=== PATIENT | male | born 1965 | race Caucasian/White ===

== ENCOUNTER 2016-10-14 13:00 | Outpatient (CLI) ==
[2016-10-14 12:47] VITALS: BMI 20.3
[2016-10-14 13:35] LABS: BASOPHILS # (AUTO) 0.1 K/uL (0-0.2); EOSINOPHILS # (AUTO) 0.3 K/ul (0.0-0.7); HEMATOCRIT 44.4 % (42.0-52.0); HEMOGLOBIN 15.2 g/dl (14.0-18.0); IMMATURE GRANULOCYTE % (AUTO) 0.4 % (0.0-5.0); LYMPHOCYTES % (AUTO) 36.2 (10.0-50.0); MEAN CORPUSCULAR HEMOGLOBIN 33.1 pg (27.0-31.0); MEAN CORPUSCULAR HGB CONC 34.2 (31.8-35.4); MEAN CORPUSCULAR VOLUME 96.7 fl (80.0-94.0); MONOCYTES # (AUTO) 0.6 K/uL (0.4-2.0); MONOCYTES % (AUTO) 10.5 (0-10); NEUTROPHILS # (AUTO) 2.6 K/ul (2.0-6.9); NEUTROPHILS % (AUTO) 45.9; PLATELET COUNT 372 10^3/uL (140-440); RED BLOOD COUNT 4.59 10^6/ul (4.70-6.10); WHITE BLOOD COUNT 5.55 K/ul (4.2-10.2)
[2016-10-14 14:15] LABS: ALBUMIN 3.8 g/dL (3.4-5.0); ALBUMIN/GLOBULIN RATIO 1.06; ANION GAP 12.8; BILIRUBIN,TOTAL 0.31 mg/dL (0.00-1.20); BUN/CREATININE RATIO 12.85; CALCIUM 9.2 mg/dL (8.2-10.2); CHOL/HDL RATIO 2.5 (4.5-6.4); CREATININE 0.7 mg/dL (0.60-1.10); POTASSIUM 3.8 mmol/L (3.5-5.1); TOTAL PROTEIN 7.4 g/dL (6.4-8.2)
--- NOTE | 2016-10-14 14:44 | DI ---
EXAM: Chest two view, frontal and lateral views. HISTORY: Tobacco use. COMPARISON: None available. FINDINGS: The heart size is normal. There is no pulmonary vascular congestion. The lungs are wallace r. No pleural effusion or pneumothorax is seen. No acute osseous abnormality identified. IMPRESSION: No acute cardiopulmonary process.
== END 2016-10-14 13:01 | disposition home or self-care (01) ==
LOC: LAB 13:00
PROVIDERS: ATTEND Nurse Practitioner Family
DX: R05 Cough (principal); J44.9 Chronic obstructive pulmonary disease, unspecified; R00.2 Palpitations; R03.0 Elevated blood-pressure reading, without diagnosis of hypertension; Z00.00 Encounter for general adult medical examination without abnormal findings; Z72.0 Tobacco use
CPT/HCPCS: 36415; 80053; 80061; 84443; 85025; 93005; 93010

== ENCOUNTER 2016-10-15 23:22 | Outpatient (CLI) ==
[2016-10-14 12:47] VITALS: BMI 20.3
== END 2016-10-15 23:23 ==
LOC: AMBL 23:22
PROVIDERS: ATTEND Family Medicine
DX: I95.9 Hypotension, unspecified (principal); R07.89 Other chest pain; R10.13 Epigastric pain; R11.2 Nausea with vomiting, unspecified; R06.9 Unspecified abnormalities of breathing; R53.1 Weakness; R94.31 Abnormal electrocardiogram [ECG] [EKG]

== ENCOUNTER 2016-10-25 07:42 | Outpatient (CLI) ==
--- NOTE | 2016-10-25 08:45 | CT ---
EXAM: CT Abdomen with contrast. CT Pelvis with contrast. HISTORY: Right lower quadrant pain. Kidney lesion. COMPARISON: None available. TECHNIQUE: Multiple axial images of the abdomen and pelvis were obtained following intravenous admi nistration of 75 mL of Omnipaque 350, low osmolar. Images were reformatted in the coronal plane. FINDINGS: The lung bases are clear. Degenerative changes present in the spine. The liver, gallbladder, pancreas, spleen, adrenal glands are unremarkable. There is symmetric renal enhancement. No solid or cystic renal masses identified. No hydronephrosis or perinephric inflamm ation detected. The bowel is normal in course and caliber without evidence for obstruction or inflammatory process. The appendix is normal. A few diverticula are present in the colon. Urinary bladder is unremarkab le. Prostatic calcifications noted. No free fluid, free air or lymphadenopathy identified. Small fat-containing umbilical hernia noted. Atherosclerotic calcifications are present. IMPRESSION: No evidence for renal lesion or other acute abnormality within the abdomen or pelvis. Correlation w ith any old examinations, if available, would be recommended.
== END 2016-10-25 07:43 | disposition home or self-care (01) ==
LOC: RAD 07:42
PROVIDERS: ATTEND Nurse Practitioner Family
DX: N28.9 Disorder of kidney and ureter, unspecified (principal)

== ENCOUNTER 2016-11-14 07:01 | Outpatient (CLI) ==
--- NOTE | 2016-11-16 10:29 | ECHO2D ---
Date of Exam: 11/14/16 [facility] Reason for Echo: PALPITATIONS, CHEST PAIN M-Mode Normal Adult Results LV Dimensions Normal Adult Results AoV Opening excursions >1.6 >1.6 LVEDD-base- 3.5-5.8 4.4 Ao root dimensions 2.0-3.7 3.6 LVESD-base- 3.1-4.6 L. Atrium dimensions 1.9-3.8 3.9 Post. Wall thickness 0.8-1.1 1.1 IV septum (thickness) 0.7-1.2 1.1 Post. Wall excursion 0.72-1.3 NORMAL Septal motion NORMAL Systolic motion R. Ventricular cavity 1.5-2.0 NORMAL LVEF 60% 55% Paradoxical septal wall motion NORMAL 2-D : 2-D M Mode Echocardiogram was performed using apical four chamber and left parasternal long and short axis views. Mitral, tricuspid and aortic valves appear to be normal. Contractility of the left ventricle seems to be normal, so is the cavity size. Left atrial cavity size and aortic root appear to be normal. There is no pericardial effusion. There is no thrombus noted in the left ventricular or left aortic cavity. No mitral valve prolapse noted. M-MODE: MV: NORMAL AV: NORMAL TV: NORMAL PV: CHAMBER SIZE: NORMAL WALL MOTION: NORMAL PERICARDIUM: NORMAL INTERPRETATION: 1. NORMAL 2 "D" "M" MODE ECHO MTDD
== END 2016-11-14 07:02 | disposition home or self-care (01) ==
LOC: CAR 07:01
PROVIDERS: ATTEND Internal Medicine
DX: R07.9 Chest pain, unspecified (principal); R00.2 Palpitations

== ENCOUNTER 2016-11-15 09:14 | Outpatient (CLI) | END 2016-11-15 09:15 | disposition home or self-care (01) | LOC: CAR 09:14 | PROVIDERS: ATTEND Internal Medicine | DX: R06.02 Shortness of breath (principal); J44.9 Chronic obstructive pulmonary disease, unspecified ==

== ENCOUNTER 2017-04-24 07:11 | Day surgery (SDC) ==
[2017-04-24] MEDS ORDERED: VERSED ONE (08:56)
[2017-04-24] MEDS ORDERED: DIPRIVAN 20 ML VIAL IVP ONE (08:56)
[2017-04-24 09:52] VITALS: BP 105/74; TEMP 98.3
--- NOTE | 2017-04-24 13:55 | OP ---
PROCEDURE: COLONOSCOPY TO THE CECUM WITH SNARE POLYPECTOMY. ENDOSCOPIST: Jarret HILARIO M.D. INDICATION: SCREENING. INSTRUMENT: FH-190. MEDICATION: PER ANESTHESIA. PROCEDURE: The patient was positioned for colonoscopy. The digital rectal exam was negative. The colonoscope was inserted through the anus and advanced to the cecum. The cecum was identified using the ileocecal valve and the appendiceal orifice as landmarks. The scope was slowly withdrawn through an adequately prepped colon. In the ascending colon a 1 cm polyp was removed using snare cautery. At 20 cm, a 5 mm polyp was removed using snare cautery. Retroflex exam was otherwise normal. A few scattered diverticula were noted in the left colon. The patient tolerated the procedure without immediate complication. Withdrawal time 9 minutes. PLAN: 1. Review pathology with repeat colonoscopy in three years. CC: [facility]
== END 2017-04-24 10:06 | disposition home or self-care (01) ==
LOC: SURG 07:11
PROVIDERS: ATTEND Internal Medicine Gastroenterology
DX: Z12.11 Encounter for screening for malignant neoplasm of colon (principal); D12.2 Benign neoplasm of ascending colon; D12.5 Benign neoplasm of sigmoid colon; K57.30 Diverticulosis of large intestine without perforation or abscess without bleeding

== ENCOUNTER 2017-07-24 13:44 | Outpatient (CLI) ==
--- NOTE | 2017-07-24 15:15 | CT ---
EXAM: CT left shoulder HISTORY: Shoulder pain. TECHNIQUE: CT left shoulder without contrast. Multiplanar images provided. FINDINGS: No comparison CT. No acute fracture or dislocation. There is no joint separation or subluxation. The glenohumeral penelope nt proper is grossly within normal limits. There is sclerosis, irregularity and cyst formation along the greater tubercle of the proximal humerus with the cyst measuring about 0.8 cm. This can be cons istent with chronic rotator cuff apparatus insertion pathology. There is moderate acromioclavicular joint osteoarthritis with mild inferior bony spurring. There is no joint effusion identified. The s oft tissues of the shoulder appear grossly normal. IMPRESSION: 1. Changes of the proximal humerus which can be consistent with chronic rotator cuff apparatus inser tion pathology. 2. AC joint osteoarthritis. 3. Consider correlation with MRI if indicated clinically.
== END 2017-07-24 13:45 | disposition home or self-care (01) ==
LOC: RAD 13:44
PROVIDERS: ATTEND Nurse Practitioner Family
DX: M25.512 Pain in left shoulder (principal)

== ENCOUNTER → 2017-11-01 | Outpatient (RCR) ==
--- NOTE | 2017-10-27 09:04 | RS.OPPTEV2 ---
Date of Note: 10/26/17 Visit #: 1 Date of Evaluation: 10/26/17 Payer Source: Medicaid Procedure Performed: Left shoulder manipulation under anesthesia Date of Procedure: 10/24/17 Treatment Diagnosis: Left shoulder stiffness, shoulder pain, adhesive capsulitis left shoulder History of Condition/Mechanism of Injury:: Patient reports progressive left shoulder pain and loss of functional ROM over the last few months. States he had an injury to this shoulder 25 years ago, but did not have a loss of AROM from it. Prior Level of Function.....Patient was independent with: ADL's, Self Care, Caregiving, Ambulation/Mobility, Community Integration/Access Functional Limitations: Sleep, Self Care, ADL's, Reaching, Pushing, Pulling, Lifting, Carrying, Community Access/Integration Current Subjective/complaints:: Patient reports left shoulder pain. Reports he has been using ice and performing exercises as instructed in his post-operative instructions. He is left hand dominant and is having difficulty performing selfcare and ADL's. He cannot lay on the left shoulder. Reports he feels like the left shoulder is a little more loose since the manipulation. States he was told that he may eventually need surgery because he has a Rotator cuff tear, a large spur, and significant arthritis of the AC joint. Treatment Side (optional): Left Medical History Medical History: Hypertension, COPD, Arthritis Smoking Status: Current some day smoker Hx Home Medications: pain medication from Pain Management Patient's Goals: His goal is to get relief of left shoulder pain. Pain Assessment - Pain Description Pain Location: left shoulder Current Pain Intensity: 3/10 Worst Pain Intensity: 10/10 Functional Outcome Measure UE Functional Index: 10 (80=87.5% impairment) - G Codes & Severity Modifier G Codes & Modifier: Na Source of G Code score: NA Observation - Observation Posture: Forward Head, Rounded Shoulders Handedness: Left Shoulder ROM: Right WFL's Shoulder Muscle Strength: Right WFL's - Left Shoulder ROM Comments: Active ROM: flexion 100 degrees, abduction 90 degrees, extension 30 degrees, adduction WFL's, ER in abduction 50 degrees, IR in abduction 30 degrees. Passive ROM: flexion to 130 degrees, abduction 110, ER in abduction 66 degrees, IR in abduction 45 degrees. - Left Shoulder Strength Left Shoulder Flexion: 4- Good- Left Shoulder Extension: 4 Good Left Shoulder Abduction: 4- Good- Left Shoulder Adduction: 4+ Good + Left Shoulder External Rotation: 4- Good- Left Shoulder Internal Rotation: 4- Good- - Right Shoulder Strength Right Shoulder Flexion: 5 Normal Right Shoulder Extension: 5 Normal Right Shoulder Abduction: 5 Normal Right Shoulder Adduction: 5 Normal Right Shoulder External Rotation: 5 Normal Right Shoulder Internal Rotation: 5 Normal Freight Air Brake Fitter Strength Left Hand Freight Air Brake Fitter Strength: 42 lbs. Right Hand Freight Air Brake Fitter Strength: 65 lbs. Dynamometer Testing Position: 2nd Position Palpation Comments:: Patient reports tenderness with palpation to the inferior aspect of the middle deltoid and over the anterior aspect of the left shoulder joint. Sensation - Sensation Right Upper Extremity: Intact/Normal Left Upper Extremity: Intact/Normal Comments: Reports occasional numbness in the 4th and 5th digits of the left hand. - Heat/Cryotherapy Treatment: Cryotherapy (X 10 mins following stretching/ROM) Interventions - Exercise/Activities/Manual Therapy Exercises/Activities: Patient received stretching/ROM into all directions of the left shoulder X 15 mins. He demonstrates mild muscle guarding at end range. Primarily reports pain with end range flexion. Patient instructed in HEP of pendulum, scapular retraction, self stretch into ER and flexion. Instructed to perform these several 4-5 times a day. Also recommended to continue icing the shoulder following exercises. Manual Therapy: NA HOME EXERCISE PROGRAM: pendulum, scapular retraction, self stretch into ER and flexion - Charges Timed Code Treatment Minutes: 15 mins Total Treatment Time: 40 mins Procedures billed for this date of service:: TOM Faye, Ex EVALUATION COMPLEXITY LEVEL EVALUATION COMPLEXITY LEVEL: HISTORY: Low, EXAM OF BODY SYSTEMS: Low, CLINICAL PRESENTATION: Low, CLINICAL DECISION MAKING: Low Assessment Assessment: Patient presents to therapy 2 days s/p left shoulder manipulation. He presents with limitation of left shoulder passive and active ROM. Also demonstrates weakness of the left shoulder. He is left hand dominant and reports limited ability to perform selfcare and ADL's. He demonstrates good potential to regain functional AROM and strength with therapeutic intervention. Patient Education: Education of diagnosis, Body/Joint mechanics, Home Exercise Program, Activity Modification, Education of Plan of Care Rehab Potential: Good Short Term Goals Goal #1: Pt independent and compliant in HEP. Goal to be met by: 11/03/17 Goal #2: Left shoulder PROM WFL's. Goal to be met by: 11/03/17 Goal #3: Left shoulder active flexion to 130 degrees with minimal pain. Goal to be met by: 11/03/17 Quality Tester Goals Goal #1: Pt knows HEP and to continue ex's to maintain functional level at D/C. Goal to be met by: 11/15/17 Goal #2: Patient to demonstrate good postural awareness. Goal to be met by: 11/15/17 Goal #3: Pt able to use the left UE for selfcare and ADL's with minimal pain. Goal to be met by: 11/15/17 Goal #4: Left shoulder AROM WFL's to perform daily functional activities/ reaching. Goal to be met by: 11/15/17 Plan - Treatment to be Provided Procedures: Therapeutic Exercises, Therapeutic Activity, Patient Education Modalities: Cryotherapy, Hot Packs - Treatment Plan Frequency: Daily Duration: 2 weeks ORDER # VISITS AND/OR THROUGH DATE: 11/15/17 - Treatment Code (1) Shoulder stiffness Qualifiers: Laterality: left Qualified Code(s): M25.612 - Stiffness of left shoulder, not elsewhere classified (2) Shoulder pain Code(s): M25.519 - PAIN IN UNSPECIFIED SHOULDER Qualifiers: Chronicity: acute Laterality: left Qualified Code(s): M25.512 - Pain in left shoulder (3) Adhesive capsulitis Code(s): M75.00 - ADHESIVE CAPSULITIS OF UNSPECIFIED SHOULDER Qualifiers: Laterality: left Qualified Code(s): M75.02 - Adhesive capsulitis of left shoulder (4) S/P operative procedure on shoulder Code(s): Z98.89 - OTHER SPECIFIED POSTPROCEDURAL STATES * DO NOT USE * Comments: Z98.890 Left shoulder manipulation under anesthesia
--- NOTE | 2017-10-27 14:55 | RS.OPPTDN ---
Subjective Date of Note: 10/27/17 Visit #: 2 Date of Evaluation: 10/26/17 Payer Source: Medicaid Treatment Diagnosis: Left shoulder stiffness, shoulder pain, adhesive capsulitis left shoulder Current Subjective/complaints:: Patient reports general discomfort with PROM. States he is working HEP as instructed. States he wants to avoid surgery if he can. Pain Assessment - Pain Description Pain Location: Left shoulder Current Pain Intensity: 0 at rest, 4/10 with general mobility - Heat/Cryotherapy Treatment: Hot Pack ([id number] to the left shoulder prior to EX. Patient in supine. ) Interventions - Exercise/Activities/Manual Therapy Exercises/Activities: Patient received stretching/ROM into all directions of the left shoulder, with rest breaks. Isometric left shoulder add, extension, IR and ER. Isometric biceps and triceps. In sitting, shoulder shrugs, scap retraction, and left posterior capsule stretch with UE across midline. Discussed Codmans and wall walking. Patient given copy of new exercises. Total minutes of Exercise: 40mins Manual Therapy: NA HOME EXERCISE PROGRAM: pendulum, scapular retraction, self stretch into ER and flexion - Charges Timed Code Treatment Minutes: 40mins Total Treatment Time: 55mins Procedures billed for this date of service:: HP, EX3 Assessment: Patient responds well to PROM and is able to relax. He is motivated to work on HEP. Patient Education: Body/Joint mechanics, Home Exercise Program, Home Safety, Activity Modification Comments: Patient given copy of additions to HEP. Patient demonstrates compliance with HEP?: Yes Short Term Goals Goal #1: Pt independent and compliant in HEP. Goal to be met by: 11/03/17 Progress towards Goal:: Progressing Goal #2: Left shoulder PROM WFL's. Goal to be met by: 11/03/17 Progress towards Goal:: Progressing Goal #3: Left shoulder active flexion to 130 degrees with minimal pain. Goal to be met by: 11/03/17 Residential Goals Goal #1: Pt knows HEP and to continue ex's to maintain functional level at D/C. Goal to be met by: 11/15/17 Goal #2: Patient to demonstrate good postural awareness. Goal to be met by: 11/15/17 Goal #3: Pt able to use the left UE for selfcare and ADL's with minimal pain. Goal to be met by: 11/15/17 Goal #4: Left shoulder AROM WFL's to perform daily functional activities/ reaching. Goal to be met by: 11/15/17 Plan PLAN OF CARE EXPIRES ON:: 11/15/17 ORDER # VISITS AND/OR THROUGH DATE: 11/15/17 PLAN: Progress ROM and gentle strengthening as tolerated.
--- NOTE | 2017-10-30 14:55 | RS.OPPTDN ---
Subjective Date of Note: 10/30/17 Visit #: 3 Date of Evaluation: 10/26/17 Payer Source: Medicaid Treatment Diagnosis: Left shoulder stiffness, shoulder pain, adhesive capsulitis left shoulder Current Subjective/complaints:: Patient reports left shoulder ROM seems to be progressing well. States he can now use the left UE to brush his hair now. Pain Assessment - Pain Description Pain Location: Left shoulder Pain Description: ache Current Pain Intensity: 3-4/10 - Heat/Cryotherapy Treatment: Hot Pack ([id number] to the left shoulder prior to EX. Patient in supine. ) Interventions - Exercise/Activities/Manual Therapy Exercises/Activities: Patient received stretching/ROM into all directions of the left shoulder, with rest breaks. Isometric left shoulder add, extension, IR and ER. Isometric biceps and triceps. Isometric shoulder IR with ball between hands. Wand for chest press and short overhead shoulder flexion. Discussed Codmans and added shhort range cuff series. Total minutes of Exercise: 40mins Manual Therapy: NA HOME EXERCISE PROGRAM: pendulum, scapular retraction, self stretch into ER and flexion, cuff series - Charges Timed Code Treatment Minutes: 40mins Total Treatment Time: 55mins Procedures billed for this date of service:: HP, EX3 Assessment: Patient progressing with ROM and with active motion. He reports using left UE for daily self-care. Patient Education: Home Exercise Program Patient demonstrates compliance with HEP?: Yes Short Term Goals Goal #1: Pt independent and compliant in HEP. Goal to be met by: 11/03/17 Progress towards Goal:: Progressing Goal #2: Left shoulder PROM WFL's. Goal to be met by: 11/03/17 Progress towards Goal:: Progressing Goal #3: Left shoulder active flexion to 130 degrees with minimal pain. Goal to be met by: 11/03/17 Progress towards Goal:: Progressing Custodial Goals Goal #1: Pt knows HEP and to continue ex's to maintain functional level at D/C. Goal to be met by: 11/15/17 Goal #2: Patient to demonstrate good postural awareness. Goal to be met by: 11/15/17 Progress towards goal: Progressing Goal #3: Pt able to use the left UE for selfcare and ADL's with minimal pain. Goal to be met by: 11/15/17 Progress towards goal: Progressing Goal #4: Left shoulder AROM WFL's to perform daily functional activities/ reaching. Goal to be met by: 11/15/17 Plan PLAN OF CARE EXPIRES ON:: 11/15/17 ORDER # VISITS AND/OR THROUGH DATE: 11/15/17 PLAN: Progress ROM and gentle strengthening.
--- NOTE | 2017-10-31 16:40 | RS.OPPTDN ---
Subjective Date of Note: 10/31/17 Visit #: 4 Date of Evaluation: 10/26/17 Payer Source: Medicaid Treatment Diagnosis: Left shoulder stiffness, shoulder pain, adhesive capsulitis left shoulder Current Subjective/complaints:: Patient states he can tell that he is able to move the left shoulder better. States he is performing his exercises at home. States he was able to use his left UE to try to clean some sugar off the counter. States he could reach forward with the left arm, but it wore out quickly. Interventions - Exercise/Activities/Manual Therapy Exercises/Activities: Patient received stretching/ROM into all directions of the left shoulder, with rest breaks. Isometric left shoulder flex,add, extension , IR and ER. Isometric shoulder IR with ball between hands. Wand for chest press and short overhead shoulder flexion. Red theraband for punching motion towards the ceiling and shoulder extension. Total minutes of Exercise: 36 mins Manual Therapy: NA HOME EXERCISE PROGRAM: pendulum, scapular retraction, self stretch into ER and flexion, cuff series - Objective Findings Observations,measurements,etc.: Active shoulder flexion to 160 degrees in standing. - Charges Timed Code Treatment Minutes: 36 mins Total Treatment Time: 36 mins Procedures billed for this date of service:: EX2 Assessment: Patient with subjective reports of improved ROM and slowly able to do more with the left UE. Demonstrates functional AROM into flexion, but strength will not allow for sustained positions or repeated motions for full functional use at this time. He demonstrates the need for continued stretching/ ROM exercises and progressed strengthening to the left shoulder. Patient Education: Education of diagnosis, Body/Joint mechanics, Home Exercise Program, Education of Plan of Care Patient demonstrates compliance with HEP?: Yes Short Term Goals Goal #1: Pt independent and compliant in HEP. Goal to be met by: 11/03/17 Progress towards Goal:: Progressing Goal #2: Left shoulder PROM WFL's. Goal to be met by: 11/03/17 Progress towards Goal:: Progressing Goal #3: Left shoulder active flexion to 130 degrees with minimal pain. Goal to be met by: 11/03/17 Progress towards Goal:: Met Goal #4: Left shoulder strength 4+/5. Goal to be met by: 11/07/17 Long-Term Goals Goal #1: Pt knows HEP and to continue ex's to maintain functional level at D/C. Goal to be met by: 11/15/17 Goal #2: Patient to demonstrate good postural awareness. Goal to be met by: 11/15/17 Progress towards goal: Progressing Goal #3: Pt able to use the left UE for selfcare and ADL's with minimal pain. Goal to be met by: 11/15/17 Progress towards goal: Progressing Goal #4: Left shoulder AROM WFL's to perform daily functional activities/ reaching. Goal to be met by: 11/15/17 Progress towards goal: Progressing Plan PLAN OF CARE EXPIRES ON:: 11/15/17 ORDER # VISITS AND/OR THROUGH DATE: 11/15/17 PLAN: continue ROM and progress strengthening.
--- NOTE | 2017-11-01 15:06 | RS.OPPTDN ---
Subjective Date of Note: 11/01/17 Visit #: 5 Date of Evaluation: 10/26/17 Payer Source: Medicaid Treatment Diagnosis: Left shoulder stiffness, shoulder pain, adhesive capsulitis left shoulder Current Subjective/complaints:: Patient reports improvement in mobility of the left shoulder and increase of use with light ADL's. Pain Assessment - Pain Description Pain Location: Left shoulder Current Pain Intensity: mild, no pain at rest - Heat/Cryotherapy Treatment: Hot Pack ([id number] to the left shoulder prior to EX. Patient in supine. ) Interventions - Exercise/Activities/Manual Therapy Exercises/Activities: PROM into all directions of the left shoulder, with rest breaks. Isometric left shoulder flex, add, extension, IR and ER. Isometric shoulder IR with ball between hands. Patient holds ball overhead and performs triceps press. Wand for chest press and short overhead shoulder flexion. Wand with yellow theraband for resisted bilateral shoulder extension to lap. Red theraband for resisted left shoulder flex, ext, chest press, IR, ER, biceps and triceps. Begins cuff series with 1# dumbell. Total minutes of Exercise: 40mins Manual Therapy: NA HOME EXERCISE PROGRAM: pendulum, scapular retraction, self stretch into ER and flexion, cuff series - Charges Timed Code Treatment Minutes: 40mins Total Treatment Time: 60mins Procedures billed for this date of service:: HP, EX3 Assessment: Patient progressing with ROM and with light resistive exercise. Patient Education: Body/Joint mechanics, Home Exercise Program, Activity Modification Patient demonstrates compliance with HEP?: Yes Short Term Goals Goal #1: Pt independent and compliant in HEP. Goal to be met by: 11/03/17 Progress towards Goal:: Met Goal #2: Left shoulder PROM WFL's. Goal to be met by: 11/03/17 Progress towards Goal:: Met Goal #3: Left shoulder active flexion to 130 degrees with minimal pain. Goal to be met by: 11/03/17 Progress towards Goal:: Met Goal #4: Left shoulder strength 4+/5. Goal to be met by: 11/07/17 Warp Preparer Goals Goal #1: Pt knows HEP and to continue ex's to maintain functional level at D/C. Goal to be met by: 11/15/17 Goal #2: Patient to demonstrate good postural awareness. Goal to be met by: 11/15/17 Progress towards goal: Progressing Goal #3: Pt able to use the left UE for selfcare and ADL's with minimal pain. Goal to be met by: 11/15/17 Progress towards goal: Progressing Goal #4: Left shoulder AROM WFL's to perform daily functional activities/ reaching. Goal to be met by: 11/15/17 Progress towards goal: Progressing Plan PLAN OF CARE EXPIRES ON:: 11/15/17 ORDER # VISITS AND/OR THROUGH DATE: 11/15/17 PLAN: Progress exercise to increase functional activity level.
== END ==
PROVIDERS: ATTEND Orthopaedic Surgery
DX: M75.02 Adhesive capsulitis of left shoulder (principal)

== ENCOUNTER 2017-11-08 13:00 | Outpatient (RCR) ==
[2017-07-24 13:51] VITALS: BMI 20.3
--- NOTE | 2017-11-02 16:33 | RS.OPPTDN ---
Subjective Date of Note: 11/02/17 Visit #: 6 Date of Evaluation: 10/26/17 Payer Source: Medicaid Treatment Diagnosis: Left shoulder stiffness, shoulder pain, adhesive capsulitis left shoulder Current Subjective/complaints:: Patient reports doing well today. States he needs to leave early due to transportation. Pain Assessment - Pain Description Pain Location: Left shoulder Current Pain Intensity: mild - Heat/Cryotherapy Treatment: Hot Pack ([id number] to the left shoulder prior to EX. Patient in supine. ) Interventions - Exercise/Activities/Manual Therapy Exercises/Activities: PROM into all directions of the left shoulder, with rest breaks. Isometric left shoulder flex, add, extension, IR and ER. Isometric shoulder IR with ball between hands. Patient holds ball overhead and performs triceps press. 3# wand for chest press and short overhead shoulder flexion. Red theraband for resisted left shoulder flex, ext, chest press, IR, ER, biceps and triceps. In sitting, 3# wand shoulder flexion to 90-100 degrees. AAROM into flex, scaption, and abduction. Total minutes of Exercise: 30mins Manual Therapy: NA HOME EXERCISE PROGRAM: pendulum, scapular retraction, self stretch into ER and flexion, cuff series - Charges Timed Code Treatment Minutes: 30mins Total Treatment Time: 45mins Procedures billed for this date of service:: HP, EX2 Assessment: Progressing well with AROM. Patient Education: Home Exercise Program Patient demonstrates compliance with HEP?: Yes Short Term Goals Goal #1: Pt independent and compliant in HEP. Goal to be met by: 11/03/17 Progress towards Goal:: Met Goal #2: Left shoulder PROM WFL's. Goal to be met by: 11/03/17 Progress towards Goal:: Met Goal #3: Left shoulder active flexion to 130 degrees with minimal pain. Goal to be met by: 11/03/17 Progress towards Goal:: Met Goal #4: Left shoulder strength 4+/5. Goal to be met by: 11/07/17 Detention Goals Goal #1: Pt knows HEP and to continue ex's to maintain functional level at D/C. Goal to be met by: 11/15/17 Goal #2: Patient to demonstrate good postural awareness. Goal to be met by: 11/15/17 Progress towards goal: Progressing Goal #3: Pt able to use the left UE for selfcare and ADL's with minimal pain. Goal to be met by: 11/15/17 Progress towards goal: Progressing Goal #4: Left shoulder AROM WFL's to perform daily functional activities/ reaching. Goal to be met by: 11/15/17 Progress towards goal: Progressing Plan PLAN OF CARE EXPIRES ON:: 11/15/17 ORDER # VISITS AND/OR THROUGH DATE: 11/15/17 PLAN: Progress AROM and strengthening activity.
--- NOTE | 2017-11-03 15:07 | RS.OPPTDN ---
Subjective Date of Note: 11/03/17 Visit #: 7 Date of Evaluation: 10/26/17 Payer Source: Medicaid Treatment Diagnosis: Left shoulder stiffness, shoulder pain, adhesive capsulitis left shoulder Current Subjective/complaints:: Patient reports left shoulder ROM is progressing very well. States he is using left arm for light activities at home. Pain Assessment - Pain Description Pain Location: Left shoulder Current Pain Intensity: mild - Heat/Cryotherapy Treatment: Hot Pack ([id number] to the left shoulder joint prior to EX. Patient in supine. ) Interventions - Exercise/Activities/Manual Therapy Exercises/Activities: PROM into all directions of the left shoulder. Isometric left shoulder flex, add, extension, abd, IR, ER, biceps, and triceps. Isometric shoulder IR with ball between hands. Patient holds ball overhead and performs triceps press. Increased to 5# wand for chest press and short overhead shoulder flexion. Red theraband for resisted left shoulder flex, ext, chest press, IR, ER, biceps and triceps. In sitting, AAROM into left shoulder flex, scaption, and abduction. Scap retraction and shoulder shrugs. Total minutes of Exercise: 40mins Manual Therapy: NA HOME EXERCISE PROGRAM: pendulum, scapular retraction, self stretch into ER and flexion, cuff series - Charges Timed Code Treatment Minutes: 40mins Total Treatment Time: 55mins Procedures billed for this date of service:: HP, EX3 Assessment: Patient progressing well with AROM and light resistive exercises. Patient Education: Home Exercise Program Patient demonstrates compliance with HEP?: Yes Short Term Goals Goal #1: Pt independent and compliant in HEP. Goal to be met by: 11/03/17 Progress towards Goal:: Met Goal #2: Left shoulder PROM WFL's. Goal to be met by: 11/03/17 Progress towards Goal:: Met Goal #3: Left shoulder active flexion to 130 degrees with minimal pain. Goal to be met by: 11/03/17 Progress towards Goal:: Met Goal #4: Left shoulder strength 4+/5. Goal to be met by: 11/07/17 Nursing Home Goals Goal #1: Pt knows HEP and to continue ex's to maintain functional level at D/C. Goal to be met by: 11/15/17 Goal #2: Patient to demonstrate good postural awareness. Goal to be met by: 11/15/17 Progress towards goal: Progressing Goal #3: Pt able to use the left UE for selfcare and ADL's with minimal pain. Goal to be met by: 11/15/17 Progress towards goal: Progressing Goal #4: Left shoulder AROM WFL's to perform daily functional activities/ reaching. Goal to be met by: 11/15/17 Progress towards goal: Progressing Plan PLAN OF CARE EXPIRES ON:: 11/15/17 ORDER # VISITS AND/OR THROUGH DATE: 11/15/17 PLAN: Progress with ROM and strengthening to increase functional activity level.
--- NOTE | 2017-11-06 14:25 | RS.OPPTDN ---
Subjective Date of Note: 11/06/17 Visit #: 8 Date of Evaluation: 10/26/17 Payer Source: Medicaid Treatment Diagnosis: Left shoulder stiffness, shoulder pain, adhesive capsulitis left shoulder Current Subjective/complaints:: Patient c/o stiffness today related to damp, colder weather. Generally says all other days have shown improvement. - Heat/Cryotherapy Treatment: Hot Pack (20 mins to the L shoulder in supine) Interventions - Exercise/Activities/Manual Therapy Exercises/Activities: PROM into all directions of the left shoulder. Isometric left shoulder flex, add, extension, abd, IR, ER, biceps, and triceps. Isometric shoulder IR with ball between hands. Patient holds ball overhead and performs triceps press. Increased to 5# wand for chest press and short overhead shoulder flexion. Red theraband for resisted left shoulder flex, ext, chest press, IR, ER, biceps and triceps. In sitting, AAROM into left shoulder flex, scaption, and abduction. Scap retraction with red tband at EOB and shoulder shrugs. 3# wand for bilateral shoulder flexion to ~160 degrees. Total minutes of Exercise: 38 Manual Therapy: NA HOME EXERCISE PROGRAM: pendulum, scapular retraction, self stretch into ER and flexion, cuff series - Charges Timed Code Treatment Minutes: 38 Total Treatment Time: 38 Procedures billed for this date of service:: ex3 Assessment: Patient with increased stiffness today related to colder, damp weather. He has been experiencing increased muscle cramps and is out of his muscle relaxers. He will be obtaining potassium tablets to aid in cramping and will hopefully help with tightness he's having. He is able to perform all exercises today with ease after moist heat and ROM. Patient is very pleased with his progress and hopes to return to some form of employment. Patient Education: Home Exercise Program Patient demonstrates compliance with HEP?: Yes Short Term Goals Goal #1: Pt independent and compliant in HEP. Goal to be met by: 11/03/17 Progress towards Goal:: Met Goal #2: Left shoulder PROM WFL's. Goal to be met by: 11/03/17 Progress towards Goal:: Met Goal #3: Left shoulder active flexion to 130 degrees with minimal pain. Goal to be met by: 11/03/17 Progress towards Goal:: Met Goal #4: Left shoulder strength 4+/5. Goal to be met by: 11/07/17 Business Assistant Goals Goal #1: Pt knows HEP and to continue ex's to maintain functional level at D/C. Goal to be met by: 11/15/17 Goal #2: Patient to demonstrate good postural awareness. Goal to be met by: 11/15/17 Progress towards goal: Progressing Goal #3: Pt able to use the left UE for selfcare and ADL's with minimal pain. Goal to be met by: 11/15/17 Progress towards goal: Progressing Goal #4: Left shoulder AROM WFL's to perform daily functional activities/ reaching. Goal to be met by: 11/15/17 Progress towards goal: Progressing Plan PLAN OF CARE EXPIRES ON:: 11/15/17 ORDER # VISITS AND/OR THROUGH DATE: 11/15/17 PLAN: Patient to continue x 1 more week to progress ROM/strength to the L UE.
--- NOTE | 2017-11-07 15:06 | RS.OPPTDN ---
Subjective Date of Note: 11/07/17 Visit #: 9 Date of Evaluation: 10/26/17 Payer Source: Medicaid Treatment Diagnosis: Left shoulder stiffness, shoulder pain, adhesive capsulitis left shoulder Current Subjective/complaints:: Patient reports he is seeing a lot of improvement in use of his left UE with daily activities. Pain Assessment - Pain Description Pain Location: Left shoulder Current Pain Intensity: mild soreness Other Comments regarding Pain:: Reports tight and occasional pinch at end range. - Heat/Cryotherapy Treatment: Hot Pack ([id number] to the left shoulder prior to EX. patient in supine. ) Interventions - Exercise/Activities/Manual Therapy Exercises/Activities: PROM into all directions of the left shoulder. Isometric left shoulder flex, add, extension, abd, IR, ER, biceps, and triceps. Isometric shoulder IR with ball between hands. 3# wand for chest press and short overhead shoulder flexion. Red theraband for resisted left shoulder flex, ext, chest press, IR, ER, biceps and triceps. 2# dumbell for left shoulder IR/ER and chest press. In sitting, AAROM into left shoulder flex, scaption, and abduction. Scap retraction with green theraband. Red theraband for bilateral shoulder ER. 3# wand for bilateral shoulder flexion. Total minutes of Exercise: 40mins Manual Therapy: NA HOME EXERCISE PROGRAM: pendulum, scapular retraction, self stretch into ER and flexion, cuff series - Objective Findings Observations,measurements,etc.: Demos active left shoulder flexion to 162 degrees. Demos right hand blow down operator to 61# and left at 42#. - Charges Timed Code Treatment Minutes: 40mins Total Treatment Time: 55mins Procedures billed for this date of service:: HP, EX3 Assessment: Patient progressing well with ROM and strengthening of the left shoulder. Patient Education: Home Exercise Program Patient demonstrates compliance with HEP?: Yes Short Term Goals Goal #1: Pt independent and compliant in HEP. Goal to be met by: 11/03/17 Progress towards Goal:: Met Goal #2: Left shoulder PROM WFL's. Goal to be met by: 11/03/17 Progress towards Goal:: Met Goal #3: Left shoulder active flexion to 130 degrees with minimal pain. Goal to be met by: 11/03/17 Progress towards Goal:: Met Goal #4: Left shoulder strength 4+/5. Goal to be met by: 11/07/17 [facility] Goals Goal #1: Pt knows HEP and to continue ex's to maintain functional level at D/C. Goal to be met by: 11/15/17 Goal #2: Patient to demonstrate good postural awareness. Goal to be met by: 11/15/17 Progress towards goal: Partially Met Goal #3: Pt able to use the left UE for selfcare and ADL's with minimal pain. Goal to be met by: 11/15/17 Progress towards goal: Partially Met Goal #4: Left shoulder AROM WFL's to perform daily functional activities/ reaching. Goal to be met by: 11/15/17 Progress towards goal: Partially Met Plan PLAN OF CARE EXPIRES ON:: 11/15/17 ORDER # VISITS AND/OR THROUGH DATE: 11/15/17 PLAN: Progress ROM and strengthening to increase patients functional activity level.
--- NOTE | 2017-11-09 09:55 | RS.OPPTDN ---
Subjective Date of Note: 11/08/17 Visit #: 10 Date of Evaluation: 10/26/17 Payer Source: Medicaid Treatment Diagnosis: Left shoulder stiffness, shoulder pain, adhesive capsulitis left shoulder Current Subjective/complaints:: Patient reports he is pleased with his progress. He reports he is performing most light to moderate ADL's. He will see his physician this week and feels he will be able to conitnue HEP after discharge. Pain Assessment - Pain Description Pain Location: Left shoulder Current Pain Intensity: mild at end range Interventions - Exercise/Activities/Manual Therapy Exercises/Activities: PROM into all directions of the left shoulder. Isometric left shoulder flex, add, extension, abd, IR, ER, biceps, and triceps. Isometric shoulder IR with ball between hands. 3# wand for chest press and short overhead shoulder flexion. Red theraband for resisted left shoulder flex, ext, chest press, IR, ER, biceps and triceps. 2# dumbell for left shoulder IR/ER and chest press. In sitting, AAROM into left shoulder flex, scaption, and abduction. Red theraband for bilateral shoulder ER. 3# wand for bilateral shoulder flexion. Patient given blue theraband for progression of scap retraction with HEP. Ended with doorway anterior chest stretch, 3 positions. Reveiwed all patient education on dx, mechanics, and HEP. Total minutes of Exercise: 45mins Manual Therapy: NA HOME EXERCISE PROGRAM: pendulum, scapular retraction, self stretch into ER and flexion, cuff series - Objective Findings Observations,measurements,etc.: Demos full left shoulder flexion. All left shoulder at WFL's. - Charges Timed Code Treatment Minutes: 45mins Total Treatment Time: 45mins Procedures billed for this date of service:: EX3 Assessment: Patient has progressed well and benefitted from treatment. The patient met 7 of 8 treatment goals. He reports performing all light to mod ADL' s. He has been consistent with HEP and will continue following discharge. Patient Education: Body/Joint mechanics, Home Exercise Program, Home Safety, Activity Modification, Education of Plan of Care Comments: Reviewed and finalized all patient education. Patient demonstrates compliance with HEP?: Yes Short Term Goals Goal #1: Pt independent and compliant in HEP. Goal to be met by: 11/03/17 Progress towards Goal:: Met Goal #2: Left shoulder PROM WFL's. Goal to be met by: 11/03/17 Progress towards Goal:: Met Goal #3: Left shoulder active flexion to 130 degrees with minimal pain. Goal to be met by: 11/03/17 Progress towards Goal:: Met Goal #4: Left shoulder strength 4+/5. Goal to be met by: 11/07/17 Progress towards Goal:: Partially Met Comments:: 4 to 4+ flexion and abduction, all other 4+/5 MMT Snf Goals Goal #1: Pt knows HEP and to continue ex's to maintain functional level at D/C. Goal to be met by: 11/15/17 Progress towards goal: Met Goal #2: Patient to demonstrate good postural awareness. Goal to be met by: 11/15/17 Progress towards goal: Met Goal #3: Pt able to use the left UE for selfcare and ADL's with minimal pain. Goal to be met by: 11/15/17 Progress towards goal: Met Goal #4: Left shoulder AROM WFL's to perform daily functional activities/ reaching. Goal to be met by: 11/15/17 Progress towards goal: Met Plan PLAN OF CARE EXPIRES ON:: 11/15/17 ORDER # VISITS AND/OR THROUGH DATE: 11/15/17 PLAN: Plan for discharge with HEP following appointment with orthopaedic surgeon.
--- NOTE | 2017-11-14 10:52 | RS.QUICKDC ---
Discharge from PT Date of Discharge: 11/14/17 Number of Visits: 10 Reason for Discharge: Patient porgressed well and met 7 of 8 treatment goals. He reported he felt he was doing well and could continue HEP. He returned to physician for a follow-up and no further treatment ordered and no contact from patient to schedule additional appointments. Discharge at this time.
== END 2017-12-02 ==
PROVIDERS: ATTEND Orthopaedic Surgery
DX: M75.02 Adhesive capsulitis of left shoulder (principal)

== ENCOUNTER 2017-12-18 16:12 | Outpatient (CLI) ==
[2017-07-24 13:51] VITALS: BMI 20.3
== END 2017-12-18 16:13 | disposition home or self-care (01) ==
LOC: RHC-LAB 16:12
PROVIDERS: ATTEND Nurse Practitioner Family
DX: R00.2 Palpitations (principal); J44.9 Chronic obstructive pulmonary disease, unspecified; Z12.5 Encounter for screening for malignant neoplasm of prostate
CPT/HCPCS: 36415; 80053; 80061; 84443; 85025

== ENCOUNTER 2018-01-08 12:29 | Outpatient (CLI) ==
[2017-07-24 13:51] VITALS: BMI 20.3
== END 2018-01-08 12:30 | disposition home or self-care (01) ==
LOC: RHC-LAB 12:29
PROVIDERS: ATTEND Nurse Practitioner Family
DX: E87.1 Hypo-osmolality and hyponatremia (principal)
CPT/HCPCS: 36415; 80053

== ENCOUNTER 2018-04-24 14:10 | Outpatient (CLI) ==
[2017-07-24 13:51] VITALS: BMI 20.3
== END 2018-04-24 14:11 | disposition home or self-care (01) ==
LOC: RHC-LAB 14:10
PROVIDERS: ATTEND Nurse Practitioner Family
DX: E78.5 Hyperlipidemia, unspecified (principal)
CPT/HCPCS: 36415; 80053; 80061

== ENCOUNTER 2018-05-01 12:35 | Outpatient (CLI) ==
[2017-07-24 13:51] VITALS: BMI 20.3
== END 2018-05-01 12:36 | disposition home or self-care (01) ==
LOC: CAR 12:35
PROVIDERS: ATTEND Nurse Practitioner Family
DX: R06.02 Shortness of breath (principal); J44.9 Chronic obstructive pulmonary disease, unspecified
CPT/HCPCS: 94761

== ENCOUNTER 2018-11-12 11:32 | Outpatient (CLI) ==
[2017-07-24 13:51] VITALS: BMI 20.3
--- NOTE | 2018-11-12 14:37 | DI ---
EXAM: Seven views of the cervical spine. History: Cervicalgia. Findings: No acute fracture or subluxation. Straightening of the normal curvature of the cervical s pine. No prevertebral soft tissue swelling. Predental space is not widened. Moderate to severe dis c space narrowing at C6-7 with endplate sclerosis and osteophyte formation. The other disc space hei ghts are relatively preserved. Multilevel bilateral uncovertebral and facet hypertrophy causing bila teral bony neural foraminal narrowing and most significant at C3-4 and C4-5. Impression: 1. No acute osseous abnormality of the cervical spine. 2. Moderate to severe degenerative disc disease at C6-7. 3. Facet hypertrophy causing bony neural foraminal narrowing.
--- NOTE | 2018-11-12 14:39 | DI ---
EXAM: Five views of the lumbar spine. History: Lower back pain and left sided sciatica Findings: Atherosclerotic vascular calcifications. No acute fracture. 3 mm anterolisthesis of L3 o n L4. 2 mm retrolisthesis of L4 on L5. 2 mm retrolisthesis of L2 on L3. Severe disc space narrowin g at L4-L5 with endplate sclerosis, osteophyte formation and vacuum disc phenomenon. Moderate disc s pace narrowing at L2-L3 and L3-L4. Moderate facet hypertrophy within the lower lumbar spine. Impression: 1. No acute osseous abnormality of the lumbar spine. 2. Degenerative changes
--- NOTE | 2018-11-12 14:44 | DI ---
EXAM: Three views of the thoracic spine. History: Thoracic back pain. Findings: No acute fracture or subluxation of the thoracic spine. Mild multilevel disc space narrow ing with a few small osteophytes. No abnormal calcifications or radiopaque foreign bodies. Impression: 1. No acute osseous abnormality. 2. Mild degenerative disc disease of the thoracic spine
== END 2018-11-12 11:33 | disposition home or self-care (01) ==
LOC: RAD 11:32
PROVIDERS: ATTEND Nurse Practitioner Family
DX: M54.6 Pain in thoracic spine (principal); M54.2 Cervicalgia; M54.42 Lumbago with sciatica, left side; G89.29 Other chronic pain